=== PATIENT | female | born 1975 | race Caucasian/White ===

== ENCOUNTER 2017-01-14 21:04 | Emergency (ER) | payer MEDICAID ==
[~2017-01-14] VITALS: Ht 152.4 cm; Wt 70.0 kg
[2017-01-14 21:56] LABS: CLARITY URINE CLOUDY (CLEAR); COLOR URINE DARK YELLOW (YELLOW); GLUCOSE URINE NEGATIVE (NEGATIVE); KETONES URINE 2+ (NEGATIVE); LEUKOCYTE ESTERASE URINE NEGATIVE (NEGATIVE); NITRITE URINE NEGATIVE (NEGATIVE); OCCULT BLOOD URINE NEGATIVE (NEGATIVE); PH URINE 5.5 (4.5-8.0); PROTEIN URINE 1+ (NEGATIVE); SPECIFIC GRAVITY URINE 1.037 (1.005-1.030)
[2017-01-14 22:23] LABS: SQUAMOUS EPITHELIAL CELL URINE 2+ /lpf (RARE/1+)
[2017-01-14 22:24] LABS: BACTERIA URINE 2+; MUCUS URINE 1+ /lpf (< = 2+); RBC URINE 0-2 /hpf (0-2)
[2017-01-14] MEDS ORDERED: KETOROLAC 30MG/ML VIAL IM STA (23:36)
[2017-01-14] MEDS ORDERED: FAMOTIDINE 20MG TABLET PO ONE (23:45)
[2017-01-15 00:02] LABS: BASOPHILS % 0.5 % (0.0-2.0); EOSINOPHILS % 0.1 % (0.0-5.0); HEMATOCRIT. 41.9 % (36.0-48.0); HEMOGLOBIN. 14.5 g/dL (12.0-16.0); LYMPHOCYTES % 8.6 % (20.0-50.0); MEAN CORPUSCULAR HEMOGLOBIN 30.5 pg (28.0-32.0); MEAN CORPUSCULAR HGB CONC 34.5 g/dL (31.0-37.0); MEAN CORPUSCULAR VOLUME 88.3 fL (81.0-99.0); MEAN PLATELET VOLUME 9.1 fl (7.4-10.4); MONOCYTES % 9.6 % (2.0-8.0); NEUTROPHILS % 81.2 % (40.0-76.0); PLATELET 214 x1000/uL (130-400); RED BLOOD CELL COUNT 4.74 mill/uL (4.2-5.4); RED CELL DISTRIBUTION WIDTH 12.5 % (11.6-14.6); WHITE BLOOD COUNT 5.4 x1000/uL (4.5-11.0)
[2017-01-15 00:07] LABS: CHLORIDE 103 mEq/L (98-107); INDEX HEMOLYSI 1 (1-3); INDEX ICTERIC 1 (1-4); INDEX LIPEMIC 1 (1-3)
[2017-01-15 00:16] LABS: ALANINE AMINOTRANSFERASE 216 IU/L (13-61); ALBUMIN 3.9 g/dL (3.4-5.0); ANION GAP 12; CALCIUM 8.6 mg/dL (8.5-10.1); CARBON DIOXIDE 27 mEq/L (21-32); LIPASE 219 IU/L (73-393); UREA NITROGEN BLOOD 10 mg/dL (7-21); eGFR > 60 mL/min (>60)
[2017-01-15 00:17] LABS: CLARITY URINE CLOUDY (CLEAR); COLOR URINE DARK YELLOW (YELLOW); GLUCOSE URINE NEGATIVE (NEGATIVE); KETONES URINE TRACE (NEGATIVE); LEUKOCYTE ESTERASE URINE NEGATIVE (NEGATIVE); NITRITE URINE NEGATIVE (NEGATIVE); OCCULT BLOOD URINE NEGATIVE (NEGATIVE); PH URINE 5.5 (4.5-8.0); PROTEIN URINE 1+ (NEGATIVE); SPECIFIC GRAVITY URINE 1.035 (1.005-1.030)
[2017-01-15 00:18] LABS: HCG SCREEN NEGATIVE
[2017-01-15 00:32] VITALS: BP 129/84
[2017-01-15 00:53] LABS: SQUAMOUS EPITHELIAL CELL URINE 2+ /lpf (RARE/1+)
[2017-01-15 00:54] LABS: BACTERIA URINE 1+; RBC URINE 0-2 /hpf (0-2)
== END 2017-01-15 01:31 | disposition home or self-care (01) ==
LOC: ER 21:05
DX: N39.0 Urinary tract infection, site not specified (principal)
CPT/HCPCS: 36415; 80053; 81001; 83690; 84703; 85025; 96372; 99284; J1885; Z7610

== ENCOUNTER 2025-02-26 00:19 | Inpatient (IN) | payer MEDICAID, OTHER ==
[~2025-02-26] VITALS: Ht 152.4 cm; Wt 69.9 kg
[2025-02-26 01:10] LABS: BASOPHILS % 0.4 % (0.0-2.0); EOSINOPHILS % 2.6 % (0.0-5.0); LYMPHOCYTES % 22.9 % (20.0-50.0); MEAN CORPUSCULAR HEMOGLOBIN 16.1 pg (28.0-32.0); MEAN CORPUSCULAR HGB CONC 28.1 g/dL (31.0-37.0); MEAN CORPUSCULAR VOLUME 57.2 fL (81.0-99.0); MEAN PLATELET VOLUME 8.8 fl (7.4-10.4); MONOCYTES % 6.4 % (2.0-8.0); NEUTROPHILS % 67.7 % (40.0-76.0); PLATELET 312 x1000/uL (130-400); RED BLOOD CELL COUNT 4.19 mill/uL (4.2-5.4); RED CELL DISTRIBUTION WIDTH 20.7 % (11.6-14.6); WHITE BLOOD COUNT 7.3 x1000/uL (4.5-11.0)
[2025-02-26 01:21] LABS: CHLORIDE 109 mEq/L (98-107); POTASSIUM 3.8 mEq/L (3.5-5.1); SODIUM 139 mEq/L (136-145)
[2025-02-26 01:22] LABS: CARBON DIOXIDE 21 mEq/L (21-32)
[2025-02-26 01:23] LABS: ADD RBC MORPHOLOGY YES; CALCIUM 8.6 mg/dL (8.7-10.4); DIFFERENTIAL COMMENT 1; HEMOGLOBIN. 6.7 g/dL (12.0-16.0)
[2025-02-26 01:27] LABS: CREATININE 0.8 mg/dL (0.6-1.0); GLUCOSE 110 mg/dL (70-105); UREA NITROGEN BLOOD 14 mg/dL (9-23)
[2025-02-26 01:38] LABS: HCG SCREEN NEGATIVE
[2025-02-26 01:46] LABS: ALANINE AMINOTRANSFERASE 12 IU/L (10-49); ALBUMIN 4.5 g/dL (3.2-4.8); ASPARTATE AMINOTRANSFERASE 12 IU/L (<34); BILIRUBIN DIRECT 0.1 mg/dL (<=3.0); BILIRUBIN TOTAL 0.5 mg/dL (0.1-1.0)
[2025-02-26 02:15] LABS: CLARITY URINE CLOUDY (CLEAR); COLOR URINE RED (YELLOW); GLUCOSE URINE NEGATIVE (NEGATIVE); KETONES URINE NEGATIVE (NEGATIVE); LEUKOCYTE ESTERASE URINE 2+ (NEGATIVE); NITRITE URINE NEGATIVE (NEGATIVE); OCCULT BLOOD URINE 3+ (NEGATIVE); PH URINE 6.5 (4.5-8.0); PROTEIN URINE 4+ (NEGATIVE); SPECIFIC GRAVITY URINE 1.025 (1.005-1.030); UROBILINOGEN URINE 0.2 E.U./dL (0.2-1.0)
[2025-02-26 02:58] LABS: RBC URINE TNTC /hpf (0-2); WBC URINE 0-2 /hpf (0-2)
[2025-02-26 02:59] LABS: SQUAMOUS EPITHELIAL CELL URINE FEW /lpf (RARE/1+)
[2025-02-26 03:30] LABS: BACTERIA URINE 1+
[2025-02-26 04:44] LABS: PLATELET ESTIMATE NORMAL
[2025-02-26 04:45] LABS: ANISOCYTOSIS 1+
[2025-02-26] MEDS ORDERED: ACETAMINOPHEN 325MG TABLET PO PRN (07:45)
[2025-02-26] MEDS ORDERED: ONDANSETRON HCL 4MG/2ML INJ IV PRN (07:45)
[2025-02-26] MEDS ORDERED: CLONIDINE 0.1MG TABLET PO PRN (07:45)
[2025-02-26] MEDS ORDERED: DOCUSATE SODIUM 100MG CAPSULE PO PRN (07:45)
[2025-02-26] MEDS ORDERED: IPRATROPIUM/ALBUTEROL 0.5-3(2.5)MG/3ML NEB HHN PRN (07:45)
[2025-02-26 08:00] VITALS: BP 110/77; PULSE 67; RESP 18; TEMP 36.6; O2SAT 100
[2025-02-26 08:33] VITALS: BP 110/77; PULSE 67; RESP 18; TEMP 36.6
[2025-02-26 09:50] LABS: *AMPHETAMINES SCREEN URINE NEGATIVE (NEGATIVE); *BARBITURATES SCREEN URINE NEGATIVE (NEGATIVE); *BENZODIAZEPINES SCREEN URINE NEGATIVE (NEGATIVE); *COCAINE SCREEN URINE NEGATIVE (NEGATIVE); CANNABINOID URINE SCREEN NEGATIVE (NEGATIVE); ECSTASY MDMA SCREEN URINE NEGATIVE (NEGATIVE); METHADONE URINE SCREEN NEGATIVE (NEGATIVE); OPIATES URINE SCREEN NEGATIVE (NEGATIVE); PHENCYCLIDINE URINE SCREEN NEGATIVE (NEGATIVE)
[2025-02-26] MEDS: ACETAMINOPHEN 325MG TABLET PO PRN (10:05)
[2025-02-26 12:00] VITALS: BP 127/21; PULSE 77; RESP 18; TEMP 36.5; O2SAT 100
[2025-02-26] MEDS ORDERED: IBUPROFEN 600MG TABLET PO PRN (12:00)
[2025-02-26 12:57] LABS: HEMOGLOBIN 8.3 g/dL (12.0-16.0)
[2025-02-26] MEDS: IBUPROFEN 600MG TABLET PO PRN (13:16)
[2025-02-26] MEDS: PANTOPRAZOLE SODIUM 40 MG/VIAL IV SCH (13:32)
[2025-02-26 16:00] VITALS: BP 133/67; PULSE 71; RESP 18; TEMP 36.6; O2SAT 98
[2025-02-26 20:00] VITALS: BP 112/56; PULSE 100; RESP 18; TEMP 36.7
[2025-02-27] VITALS: BP 118/65; PULSE 64; RESP 18; TEMP 36; O2SAT 99
[2025-02-27 04:00] VITALS: BP 120/66; PULSE 68; RESP 18; TEMP 36.4; O2SAT 98
[2025-02-27 06:52] LABS: BASOPHILS % 0.6 % (0.0-2.0); EOSINOPHILS % 3.3 % (0.0-5.0); HEMATOCRIT. 27.6 % (36.0-48.0); HEMOGLOBIN. 8.2 g/dL (12.0-16.0); MEAN CORPUSCULAR HEMOGLOBIN 17.8 pg (28.0-32.0); MEAN CORPUSCULAR HGB CONC 29.8 g/dL (31.0-37.0); MEAN CORPUSCULAR VOLUME 59.7 fL (81.0-99.0); MEAN PLATELET VOLUME 9.3 fl (7.4-10.4); MONOCYTES % 6.7 % (2.0-8.0); NEUTROPHILS % 67.4 % (40.0-76.0); PLATELET 267 x1000/uL (130-400); RED BLOOD CELL COUNT 4.63 mill/uL (4.2-5.4); RED CELL DISTRIBUTION WIDTH 24.7 % (11.6-14.6); WHITE BLOOD COUNT 5.5 x1000/uL (4.5-11.0)
[2025-02-27 07:03] LABS: DIFFERENTIAL COMMENT 1
[2025-02-27 07:13] LABS: CARBON DIOXIDE 22 mEq/L (21-32); CHLORIDE 108 mEq/L (98-107); SODIUM 138 mEq/L (136-145)
[2025-02-27 07:14] LABS: CALCIUM 8.5 mg/dL (8.7-10.4)
[2025-02-27 07:17] LABS: CREATININE 0.6 mg/dL (0.6-1.0)
[2025-02-27 07:19] LABS: GLUCOSE 94 mg/dL (70-105); UREA NITROGEN BLOOD 10 mg/dL (9-23)
[2025-02-27 08:00] VITALS: BP 136/73; PULSE 92; RESP 16; TEMP 36.5; O2SAT 98
[2025-02-27] MEDS ORDERED: IBUP-2029 PO (10:39)
[2025-02-27] MEDS ORDERED: FERR324T4 PO (10:46)
[2025-02-27 12:00] VITALS: BP 131/70; PULSE 82; RESP 18; TEMP 36.7; O2SAT 98
[2025-02-27 12:53] VITALS: BP 132/75; PULSE 80; TEMP 98.2; O2SAT 98
[2025-02-27 15:00] VITALS: BP 125/81; PULSE 73; RESP 18; TEMP 36.3; O2SAT 98
== END 2025-02-27 18:35 | disposition home or self-care (01) | DRG 663 ==
LOC: ER 00:19 → 8WST 03:47 → ENRESERV 05:04
PROVIDERS: ADMIT Family Medicine Adult Medicine; ATTEND Family Medicine Adult Medicine
PROC: 30233N1 Transfusion of Nonautologous Red Blood Cells into Peripheral Vein, Percutaneous Approach (ICD-10-PCS; principal; 2025-02-26)
DX: D64.9 Anemia, unspecified (principal); D25.9 Leiomyoma of uterus, unspecified; Z79.899 Other long term (current) drug therapy
CPT/HCPCS: 36415; 76830; 76856; 80048; 80076; 80305; 81003; 82270; 84703; 85014; 85018; 85025; 85044; 86850; 86900; 86920; 99285; J2470; P9016

== ENCOUNTER 2025-06-14 16:22 | Emergency (ER) | payer OTHER ==
[~2025-06-14] VITALS: Ht 152.4 cm; Wt 69.0 kg
[~2025-06-14 16:22] MED LIST: FERR324T4 PO; IBUP-1455 PO
[2025-06-14 16:50] VITALS: O2SAT 100
[2025-06-14 17:13] LABS: BASOPHILS % 0.7 % (0.0-2.0); EOSINOPHILS % 1.1 % (0.0-5.0); HEMATOCRIT. 25.0 % (36.0-48.0); HEMOGLOBIN. 7.6 g/dL (12.0-16.0); LYMPHOCYTES % 20.2 % (20.0-50.0); MEAN PLATELET VOLUME 8.9 fl (7.4-10.4); MONOCYTES % 4.8 % (2.0-8.0); NEUTROPHILS % 73.2 % (40.0-76.0); PLATELET 259 x1000/uL (130-400); RED BLOOD CELL COUNT 3.71 mill/uL (4.2-5.4); RED CELL DISTRIBUTION WIDTH 25.7 % (11.6-14.6)
[2025-06-14 17:17] LABS: ADD RBC MORPHOLOGY YES
[2025-06-14 17:26] LABS: CREATININE 0.7 mg/dL (0.6-1.0); UREA NITROGEN BLOOD 11 mg/dL (9-23)
[2025-06-14 17:53] LABS: PLATELET ESTIMATE NORMAL
[2025-06-14 19:04] LABS: HCG SCREEN NEGATIVE
[2025-06-14] MEDS: IBUPROFEN 600MG TABLET PO ONE (19:38)
[2025-06-14] MEDS ORDERED: IBUP-1455 PO (20:08)
[2025-06-14 20:51] LABS: COLOR URINE YELLOW (YELLOW); GLUCOSE URINE NEGATIVE (NEGATIVE); KETONES URINE TRACE (NEGATIVE); LEUKOCYTE ESTERASE URINE TRACE (NEGATIVE); NITRITE URINE NEGATIVE (NEGATIVE); OCCULT BLOOD URINE 3+ (NEGATIVE); PH URINE 5.5 (4.5-8.0); PROTEIN URINE TRACE (NEGATIVE); SPECIFIC GRAVITY URINE 1.028 (1.005-1.030); UROBILINOGEN URINE 1.0 E.U./dL (0.2-1.0)
[2025-06-14 21:06] LABS: CLARITY URINE HAZY (CLEAR)
[2025-06-14 21:07] LABS: BACTERIA URINE TRACE; RBC URINE TNTC /hpf (0-2); SQUAMOUS EPITHELIAL CELL URINE 2+ /lpf (RARE/1+); WBC URINE 0-2 /hpf (0-2)
[2025-06-14 21:08] LABS: MUCUS URINE TRACE /lpf (< = 2+)
[2025-06-14 22:00] VITALS: BP 124/83; PULSE 66; RESP 18; TEMP 36.8; O2SAT 99
== END 2025-06-14 22:00 | disposition home or self-care (01) ==
LOC: ER 16:30
DX: D25.9 Leiomyoma of uterus, unspecified (principal); D64.9 Anemia, unspecified; Z90.49 Acquired absence of other specified parts of digestive tract; Z79.899 Other long term (current) drug therapy
CPT/HCPCS: 36415; 76830; 76856; 80048; 81003; 81025; 84703; 85025; 86850; 86870; 86900; 99285

== ENCOUNTER 2025-07-18 18:03 | Emergency (ER) | payer OTHER ==
[~2025-07-18] VITALS: Ht 160 cm; Wt 70.0 kg
[2025-07-18 18:35] VITALS: O2SAT 100
[2025-07-18 19:17] LABS: BASOPHILS % 0.8 % (0.0-2.0); EOSINOPHILS % 1.4 % (0.0-5.0); HEMATOCRIT. 26.0 % (36.0-48.0); HEMOGLOBIN. 7.7 g/dL (12.0-16.0); LYMPHOCYTES % 25.9 % (20.0-50.0); MEAN PLATELET VOLUME 8.7 fl (7.4-10.4); MONOCYTES % 7.2 % (2.0-8.0); NEUTROPHILS % 64.7 % (40.0-76.0); PLATELET 465 x1000/uL (130-400); RED BLOOD CELL COUNT 4.02 mill/uL (4.2-5.4); RED CELL DISTRIBUTION WIDTH 22.9 % (11.6-14.6)
[2025-07-18 19:20] LABS: ADD RBC MORPHOLOGY YES
[2025-07-18 19:29] LABS: CREATININE 0.8 mg/dL (0.6-1.0); UREA NITROGEN BLOOD 11 mg/dL (9-23)
[2025-07-18 19:53] LABS: PLATELET ESTIMATE SLIGHTLY INCREASED
[2025-07-18 21:49] VITALS: BP 124/60; PULSE 75; RESP 20; TEMP 37.2; O2SAT 99
== END 2025-07-18 21:42 | disposition home or self-care (01) ==
LOC: ER 18:03
DX: D64.9 Anemia, unspecified (principal); R07.9 Chest pain, unspecified; Z90.49 Acquired absence of other specified parts of digestive tract
CPT/HCPCS: 36415; 80048; 85025; 86850; 86870; 86900; 93005; 99285